=== PATIENT | male | born 1940 | race Two or more races ===

== ENCOUNTER 2022-01-20 15:19 | Outpatient (CLI) | payer OTHER | END 2022-01-20 15:32 | disposition home or self-care (01) | LOC: LAB 15:19 | PROVIDERS: ATTEND Urology | DX: N30.00 Acute cystitis without hematuria (principal) ==

== ENCOUNTER 2022-01-23 08:09 | Outpatient (CLI) | payer OTHER | END 2022-01-23 08:18 | disposition home or self-care (01) | LOC: RAD 08:09 | PROVIDERS: ATTEND Urology | DX: N20.1 Calculus of ureter (principal) ==

== ENCOUNTER 2022-01-29 05:55 | Day surgery (SDC) | payer OTHER ==
[~2022-01-29 05:55] MED LIST: AMLODIPINE-OLM1 EACH PO; BENICAR HCT 201 EACH PO; HYDRODIURIL12.5 MG PO
== END 2022-01-29 13:20 | disposition home or self-care (01) ==
LOC: CIR.AMB 05:55
PROVIDERS: ATTEND Urology
DX: N20.1 Calculus of ureter (principal); Z20.822 Contact with and (suspected) exposure to COVID-19; I10 Essential (primary) hypertension; Z87.891 Personal history of nicotine dependence; E03.9 Hypothyroidism, unspecified

== ENCOUNTER 2022-02-04 08:05 | Outpatient (CLI) | payer OTHER | END 2022-02-04 08:08 | disposition home or self-care (01) | LOC: RAD 08:05 | DX: N20.1 Calculus of ureter (principal) ==

== ENCOUNTER 2022-03-11 07:34 | Outpatient (CLI) | payer OTHER | END 2022-03-11 07:40 | disposition home or self-care (01) | LOC: RAD 07:34 | PROVIDERS: ATTEND Urology | DX: N20.1 Calculus of ureter (principal) ==